=== PATIENT | male | born 1940 | race Caucasian/White ===

== ENCOUNTER 2025-04-17 10:40 | Emergency (ER) | payer MEDICARE, OTHER, SELFPAY ==
[2025-04-17 10:41] VITALS: BP 154/63; PULSE 70; RESP 16; TEMP 36.3; O2SAT 96; BMI 32.6
--- NOTE | 2025-04-17 11:00 | RAD_ITS ---
EXAM: XR Right Hand Complete, 3 or More Views CLINICAL INDICATION: TRAUMA (DISTAL INDEX/2ND METACARPAL) TECHNIQUE: Frontal, lateral and oblique views of the right hand. COMPARISON: No relevant prior studies available. 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 Comminuted mildly displaced fracture of the base of the distal 2nd phalanx. Soft tissue swelling. No dislocation. SOFT TISSUES: See above. 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 Comminuted mildly displac ed fracture of the base of the distal 2nd phalanx. Soft tissue swelling. Reading Location: [facility]
--- NOTE | 2025-04-17 11:01 | EX.ED.UPPERE ---
HPI History of Present Illness Chief Complaint: Upper Extremity Injury Informant: patient and spouse/S.O. Narrative Tetanus Immunization: Unknown [facility] Medical History High blood cholesterol Hypertension Vitamin B3 deficiency Pacemaker Home Medications ?Medication ?Instructions ?Recorded ?Last Taken ?Type cephalexin 500 mg capsule 500 mg PO Q6 7 days #28 CAPSULES 04/17/25 Unknown Rx oxycodone-acetaminophen 5 mg-325 1 tab PO Q6H PRN pain 3 days #12 04/17/25 Unknown Rx mg tablet (Percocet) tabs Allergy/AdvReac Type Severity Reaction Status Date / Time No Known Allergies Allergy Verified 04/17/25 10:41 Family History no significant family his Surgical History H/O shoulder replacement S/P knee replacement H/O transurethral resection of prostate Social History Smoking Status: Former smoker ROS ROS ED Constitutional Constitutional ED: Denies chills, fever(s) or weight loss Eyes Eyes: Denies change in vision or diplopia ENT ENT ED: Denies ear pain, rhinorrhea or sore throat Cardiovascular Cardiovascular: Denies chest pain, orthopnea, palpitations or racing heartbeat Respiratory/Chest Respiratory/Chest: Denies cough, dyspnea or orthopnea Gastrointestinal Gastrointestinal: Denies abdominal pain, diarrhea, nausea or vomiting Genitourinary Genitourinary ED: Denies dysuria, hematuria or urinary frequency Musculoskeletal Musculoskeletal: Denies arthralgias or myalgias Integumentary Reports other Details: Laceration finger/palm ; Denies abscess or rash Neurologic Neurologic: Denies headache(s) or weakness Psychiatric Psychiatric: Denies anxiety, depression, suicidal ideation or suicidal thoughts Endocrine Endocrinology: Denies polydipsia, polyphagia or polyuria Allergic/Immunologic Allergic/Immunologic ED: Denies mouth swelling, tongue swelling or urticaria EXAM Physical Exam Const Vital Signs: 04/17/25 10:41 Temperature 97.4 F L Temperature Source Temporal Pulse Rate 70 Respiratory Rate 16 Blood Pressure 154/63 H Blood Pressure Mean 93 Pulse Ox 96 Oxygen Delivery Method Room Air Positive well nourished and well developed General Appearance ED: well developed and NAD HEENT Reports normocephalic, head/scalp atraumatic and moist mucous membranes Eyes PERRL and EOMs intact bilaterally Neck no lymphadenopathy, supple and no JVD Resp normal respiratory effort and clear to auscultation bilaterally Cardio regular rate, regular rhythm and no murmurs GI normal to inspection, nondistended, normoactive bowel sounds and non-tender Palpation: soft Back/Spine no CVA tenderness and normal ROM Extremity Extremity Narrative: Right distal index finger demonstrates near complete avulsion of the finger with laceration extending medial to lateral across the dorsal surface just proximal to the nail. The distal tip appears pink with normal sensation and the nailbed and nail appear otherwise uninjured. Length of laceration of the distal finger is approximately 3 cm. There is an associated laceration over the palmar surface of the second metacarpal on the right measuring approximately 3.5 cm and is linear in nature. General Extremety ED: Negative for edema General Extremity: Negative for edema Neuro oriented x3 and CN's II-XII intact bilaterally Sensorium / Orientation: alert Motor Exam: strength 5/5 throughout Psych mental status grossly normal Mood & Affect: Negative for depressed or tearful Skin no rashes or lesions noted and no wounds MDM MDM MDM Narrative Medical decision making narrative: Differential diagnosis includes fracture dislocation neurovascular injury tendon injury My independent interpretation of the plain films of the right hand is a comminuted distal phalanx fracture of the right index finger. The palm was locally anesthetized over the laceration. It was washed with Shur-Clens and explored and closed using 3-0 Ethilon simple interrupted sutures. Good homeostasis and wound edge approximation was achieved. Patient underwent digital block of the right index finger. Wound was locally explored washed with Shur-Clens and irrigated with sterile saline of about 300 cc. Wound edges were closed using 3 oh simple interrupted Ethilon sutures. This provided good wound edge approximation. I was also able to reduce the fracture somewhat. I did place a single 3-0 Ethilon stitch from the nail to just above the cuticle to provide support and to keep the finger in a more straight position. There was limited distal range of motion he could flex but could not extend very well do not know if this is in part due to tendon disruption or the fracture or combination of both. I could not visualize the tendon. Wound was dressed with Xeroform gauze and then a AlumaFoam splint was placed to keep the finger straight. Advised the patient that he needs to follow-up with hand surgery for possible tendon disruption and to follow the fracture. He was advised this may require surgery. He was advised that he may have permanent deformity and loss of function. I am going to be placing him on Keflex as well as some Percocet for pain control. He was given local hand surgeon for follow-up but he does live out of town closer to [place]. I advised him he could follow-up with a hand surgeon [facility] if he does not wish to travel to [place] for wound care. History & Record Review Discussion w/independent historian: Patient and Family Discharge Plan Triage Chief Complaint: Upper Extremity Injury ED Provider: Lewis Berrios Dx/Rx/DC Orders Clinical Impression: Open finger fracture, Finger laceration, Hand laceration Instructions: ED Fracture, Finger, Open, ED Laceration, All Closures Prescriptions: New oxycodone-acetaminophen [Percocet] 5-325 mg tablet 1 tab PO Q6H PRN (Reason: pain) 3 Days Qty: 12 0RF cephalexin 500 mg capsule 500 mg PO Q6 7 Days Qty: 28 0RF Primary Care Provider: TONY JACOBSON Referrals: Jose Villalba MD [Med Staff - Active Staff] - As soon as possible Activity Restrictions/Additional Instructions: You may follow-up with Dr. Villalba for hand surgery here locally or call [facility] in [place] and tell them you need to follow-up with a hand surgeon. Please advise them that you have an open finger fracture. You are being placed on antibiotics. I will also write for some pain medication should you require it. Please note pain medication has many side effects including sedation nausea constipation Stitches do need to be removed in 5 days. Print Language: Czech Disposition Disposition: Home, Self Care Discharge Date/Time: 04/17/25 12:23
[2025-04-17] MEDS: Diphth,Pertuss(Acell),Tet Vac 0.5 ML Vial IM (11:07)
[2025-04-17] MEDS: Lidocaine 1% (20 ml mdv) 20 ML Vial INFILT (11:07)
[2025-04-17 12:22] VITALS: BP 154/63; PULSE 70; RESP 16; TEMP 36.3; O2SAT 96
== END 2025-04-17 12:23 | disposition home or self-care (01) ==
LOC: ED 12:13
PROVIDERS: Emergency Provider Emergency Medicine; PCP Family Medicine; Visit Provider Emergency Medicine
DX: S62.630B Displaced fracture of distal phalanx of right index finger, initial encounter for open fracture (principal); I10 Essential (primary) hypertension; Z87.891 Personal history of nicotine dependence; E78.00 Pure hypercholesterolemia, unspecified; Z95.0 Presence of cardiac pacemaker; Z23 Encounter for immunization
CPT/HCPCS: 12002; 26605; 73130; 90715; 99283